=== PATIENT | female | born 1985 | race Caucasian/White ===

== ENCOUNTER 2021-10-19 05:18 | Inpatient (IN) | payer BC ==
[2021-10-19] MEDS ORDERED: ELECTROLYTE-148 SOLN 1,000 ML IV SCH ×2 (05:50→07:15)
[2021-10-19] MEDS ORDERED: PROMETHAZINE HCL 25 MG/1 ML VIAL IVPB ONE (06:00)
[2021-10-19] MEDS ORDERED: BUTORPHANOL TARTRATE 1 MG/ML VIAL IVPB ONE (06:00)
[2021-10-19] MEDS ORDERED: BUTORPHANOL TARTRATE 2 MG/ML VIAL ONE (06:04)
[2021-10-19] MEDS ORDERED: PROMETHAZINE HCL 25 MG/1 ML VIAL ONE (06:05)
[2021-10-19] MEDS ORDERED: AMPICILLIN SODIUM 2 GM VIAL ONE (06:08)
[2021-10-19] MEDS ORDERED: AMPICILLIN - 2 GM in SODIUM CHLORIDE 100 ML IVPB ONE (06:15)
[2021-10-19 06:42] VITALS: BMI 31.5
[2021-10-19 06:45] LABS: BASO % 0.2 % (0-2.0); EOS % 0.5 % (0-4.5); HEMATOCRIT 36.4 % (32.4-45.2); HEMOGLOBIN 12.4 GM/dL (10.7-15.3); LYMPH % 31.4 % (8-40); MCH 31.1 pg (25.7-33.7); MEAN CELL VOLUME 91.6 fl (80-96); MEAN PLT VOLUME 9.1 fl (7.5-11.1); MONO % 10.1 % (3.8-10.2); NEUT % 57.8 % (42.8-82.8); PLATELET COUNT 217 10^3/uL (134-434); RBC 3.98 M/mm3 (3.60-5.2); RDW 13.7 % (11.6-15.6); WHITE BLOOD COUNT 10.1 K/mm3 (4.0-10.0)
[2021-10-19 06:51] LABS: INR 0.86 (0.83-1.09)
[2021-10-19 06:54] LABS: ACTIVATED PTT 25.7 SECONDS (25.2-36.5)
[2021-10-19 07:07] LABS: BLOOD UREA NITROGEN 10.8 mg/dL (7-18); CALCIUM 9.7 mg/dL (8.5-10.1)
[2021-10-19 07:11] LABS: CREATININE 0.7 mg/dL (0.55-1.3)
[2021-10-19] MEDS ORDERED: PCA PUMP NR ONE (07:53)
[2021-10-19] MEDS ORDERED: FENTANYL/BUPIVACAINE/NS/PF - PCEA - 50 ML DISP.SYRIN EP ONE ×2 (07:53→11:28)
[2021-10-19 08:03] LABS: HIV INTERPRETATION NEGATIVE (NEGATIVE)
[2021-10-19] MEDS ORDERED: NALOXONE HCL 0.4 MG/ML VIAL IVPUSH PRN (09:13)
[2021-10-19] MEDS ORDERED: FENTANYL/BUPIVACAINE/NS/PF - PCEA - 50 ML DISP.SYRIN EP SCH (09:15)
[2021-10-19] MEDS ORDERED: AMPICILLIN SODIUM 1 GM VIAL ONE (09:31)
[2021-10-19] MEDS: AMPICILLIN - 1 GM in SODIUM CHLORIDE 100 ML IVPB SCH ×3 (09:46→20:13)
[2021-10-19] MEDS ORDERED: OXYTOCIN 20 UNITS in 0.9% NS 20 UNIT/1,000 ML INFUS.BAG IV ONE ×2 (11:40→14:55)
[2021-10-19] MEDS ORDERED: METHYLERGONOVINE MALEATE 0.2 MG/1 ML AMP IM PRN (13:31)
[2021-10-19] MEDS ORDERED: WITCH HAZEL 50% (TUCKS) 40 PAD/JAR PAD TP PRN (13:31)
[2021-10-19] MEDS ORDERED: oxyCODONE HCL 5 MG TABLET PO PRN (13:31)
[2021-10-19] MEDS ORDERED: BISACODYL 10 MG SUPP.RECT RC PRN (13:31)
[2021-10-19] MEDS ORDERED: BENZOCAINE 28 GM HEMORRHOIDAL OINTMENT TP PRN (13:31)
[2021-10-19] MEDS ORDERED: ACETAMINOPHEN 325 MG TABLET (FP) PO PRN (13:31)
[2021-10-19] MEDS ORDERED: BENZOCAINE 20% 57 GM BOTTLE TP PRN (13:31)
[2021-10-19] MEDS ORDERED: IBUPROFEN 600 MG TABLET (FP) PO PRN (13:31)
[2021-10-19 13:32] LABS: CORD PCO2 81.7 mmHg (30-78); CORD pH 7.153 (7.14-7.44)
[2021-10-19 13:43] LABS: CORD BASE EXCESS -6.6 mmol/L (0-2); CORD HCO3 21.7 mmHg (20-29); CORD PCO2 53.2 mmHg (30-78); CORD pH 7.228 (7.14-7.44)
[2021-10-19] MEDS ORDERED: OXYTOCIN 20 UNITS in 0.9% NS 20 UNIT/1,000 ML INFUS.BAG IV SCH (13:45)
[2021-10-20 09:00] LABS: BASO % 0.3 % (0-2.0); EOS % 0.3 % (0-4.5); HEMATOCRIT 34.1 % (32.4-45.2); HEMOGLOBIN 11.4 GM/dL (10.7-15.3); LYMPH % 26.5 % (8-40); MCHC 33.5 g/dl (32.0-36.0); MEAN CELL VOLUME 92.4 fl (80-96); MEAN PLT VOLUME 8.6 fl (7.5-11.1); MONO % 7.7 % (3.8-10.2); NEUT % 65.2 % (42.8-82.8); PLATELET COUNT 194 10^3/uL (134-434); RBC 3.69 M/mm3 (3.60-5.2); RDW 13.3 % (11.6-15.6); WHITE BLOOD COUNT 11.4 K/mm3 (4.0-10.0)
[2021-10-20] MEDS ORDERED: SENNOSIDES/DOCUSATE COMBO (SENNA PLUS) TABLET (UD) PO PRN (22:00)
[2021-10-21 12:31] VITALS: BP 100/64; PULSE 76; TEMP 97.6
== END 2021-10-21 15:20 | disposition home or self-care (01) | DRG 788 ==
LOC: JLDR 05:18 → J3W 15:15
PROVIDERS: ADMIT Obstetrics & Gynecology; ATTEND Obstetrics & Gynecology
PROC: 10D00Z1 Extraction of Products of Conception, Low, Open Approach (ICD-10-PCS; principal; 2021-10-19)
DX: O48.0 Post-term pregnancy (principal); O66.5 Attempted application of vacuum extractor and forceps; O99.824 Streptococcus B carrier state complicating childbirth; Z3A.40 40 weeks gestation of pregnancy; Z37.0 Single live birth
CPT/HCPCS: 36415; 36600; 59409; 80048; 82803; 85025; 85461; 85610; 85730; 86780; 86850; 86900; 86901; 86999; 87389; 88307-TC; C9803; U0003; U0005